=== PATIENT | male | born 1985 | race Caucasian/White ===

== ENCOUNTER 2021-03-08 08:37 | Emergency (ER) | payer OTHER, BC, SELFPAY ==
[2021-03-08 08:45] VITALS: BP 139/89; PULSE 83; RESP 16; TEMP 36.9; O2SAT 100; BMI 28.2
--- NOTE | 2021-03-08 08:49 | XRR_ITS ---
PROCEDURE INFORMATION: Exam: XR Chest Exam date and time: 03/08/2021 8:51 AM Age: 35 years old Clinical indication: Angina and shortness of breath; Patient HX: SOB, heaviness in chest, headache, body aches, eyes itchy and dry; Additional info: Flu like sympoms TECHNIQUE: Imaging protocol: XR of the chest. Views: 1 view. COMPARISON: No relevant prior studies available. FINDINGS: Lungs: Visualized portions of the lungs are clear. Pleural spaces: Unremarkable. No pleural effusion. No pneumothorax. Heart/Mediastinum: Heart is within normal limits of size. Bones/joints: Unremarkable. XR/XR chest 1V portable [id number] IMPRESSION: No acute infiltrate.
--- NOTE | 2021-03-08 09:17 | ED_ITS ---
HPI - General Adult General: Chief complaint: Headache Stated complaint: migraine/ nausea/ body aches Time Seen by Provider: 03/08/21 08:41 History of Present Illness: HPI narrative: 35-year-old male presents emergency room with multiple mild complaints. Centers around that he was potentially exposed to Covid. He does not have any direct positive Covid contact. His son is at a daycare his son may have been exposed to Covid. His son does not have symptoms however he has been having nausea headache myalgias slight cough generalized abdominal discomfort is not had any diarrhea cough has been nonproductive he has had a little low-grade subjective fever no dysuria urgency or frequency. Onset (ago): day(s) Severity: mild Quality: aching Pain Consistency: constant Relieving factors: none Exacerbating factors: none Associated symptoms: Deny chest pain, confusion, cough, diaphoresis, decreased appetite, dyspnea, fevers/chills, headache(s), malaise, nausea, rash, palpitations, seizures, short of breath, syncope, vomiting or weakness Treatments prior to arrival: none Review of Systems Const: Denies: malaise or diaphoresis ENMT: Denies: throat pain, ear or mastoid pain, nasal discharge or nasal congestion Card: Denies: chest pain, palpitations or syncope Resp: Denies: dyspnea GI: Denies: nausea or vomiting : Denies: flank pain, dysuria, urinary frequency or urinary urgency Skin/Breast: Denies: rash Neuro: Denies: headache(s) or confusion Physical Exam Const: COMMON NORMALS: no acute distress GENERAL APPEARANCE: cooperative and comfortable ORIENTATION/CONSCIOUSNESS: Yes awake, Yes oriented to person, Yes oriented to place and Yes oriented to time HENMT: COMMON NORMALS: normocephalic, atraumatic and hearing grossly normal bilaterally HEAD & SCALP: normocephalic and atraumatic Neck/C-Spine: COMMON NORMALS: no JVD Resp: COMMON NORMALS: normal respiratory effort, No retractions, No use of accessory muscles and clear to auscultation bilaterally AUSCULTATION: clear to auscultation bilaterally Cardio: COMMON NORMALS: no JVD, regular rate, regular rhythm and No murmurs present (Cardio) RATE: regular rate RHYTHM: regular rhythm GI: COMMON NORMALS: Soft to palpation and No hepatosplenomegaly present AUSCULTATION: Yes normoactive bowel sounds PALPATION: Yes Soft to palpation, No Tenderness to palpation present (GI), No Guarding due to palpation present (GI) and Yes No hepatosplenomegaly present Extremity: COMMON NORMALS: normal to inspection, capillary refill normal, no clubbing, cyanosis or edema, no calf tenderness and no pedal edema Neuro: SENSORIUM/ORIENTATION: Yes oriented to person, Yes oriented to place and Yes oriented to time Skin: COMMON NORMALS: no rashes or lesions noted GENERAL SKIN EXAM: no rashes or lesions noted Course Vital Signs: Vital signs: Vital Signs Temperature 98.4 F 03/08/21 08:45 Pulse Rate 76 03/08/21 10:42 Respiratory Rate 18 03/08/21 10:42 Blood Pressure 136/82 03/08/21 10:42 Pulse Oximetry 99 03/08/21 10:42 MDM - General Adult MDM Narrative: Medical decision making narrative: Labs unremarkable. Will treat symptomatically Tylenol and ibuprofen push fluids advance diet as tolerated follow-up with primary care if not improving we did do a send out PCR recommend here maintain self quarantine until results are available Lab Data: Labs: Lab Results 03/08/21 03/08/21 03/08/21 Range/Units 10:08 10:08 10:08 WBC 6.7 (4.0-10.0) 10^3/ uL RBC 5.43 H (4.1-5.3) 10^6/u L Hgb 16.0 (11.7-16.6) g/dL Hct 47.3 (42.0-52.0) % MCV 87.1 (80-94) fL MCH 29.5 (28.0-34.0) pg MCHC 33.8 (30.0-36.0) g/dL RDW 11.9 L (12.1-15.1) % Plt Count 231 (130-400) 10^3/c mm MPV 9.9 (7.4-10.4) fL Neut % (Auto) 79.1 % Lymph % (Auto) 15.5 % [place] % (Auto) 3.9 % Eos % (Auto) 0.9 % Baso % (Auto) 0.3 % Neut # (Auto) 5.32 (1.8-7.7) 10^3/u L Lymph # (Auto) 1.0 (0.8-4.8) 10^3/u L [place] # (Auto) 0.3 (0.2-0.9) 10^3/u L Eos # (Auto) 0.1 (0.0-0.8) 10^3/u L Baso # (Auto) 0.0 (0.0-0.1) 10^3/u L Nucleated RBC % (a uto) 0 % Nucleated RBCs # 0.0 /100WBC Sodium 138 (136-145) mmol/L Potassium 4.5 (3.5-5.1) mmol/L Chloride 103 (98-107) mmol/L Carbon Dioxide 25 (22-29) mmol/L Anion Gap 14.5 (5-19) BUN 11 (6-20) mg/dL Creatinine 0.7 (0.7-1.2) mg/dL GFR Calculation 129.9 (90-130) mL/min Glucose 87 (65-115) mg/dL Calculated Osmolal ity 285 (285-295) mOsm/k g Calcium 8.6 (8.5-10.5) mg/dL Total Bilirubin 0.7 (0.15-1.2) mg/dL AST 28 (0-40) U/L ALT 31 (0-41) U/L Alkaline Phosphata se 78 (40-130) IU/L Total Protein 6.7 (6.6-8.7) g/dL Albumin 4.8 (3.5-5.2) g/dL Globulin 1.9 (1.3-4.6) g/dL Urine Color (Yellow) Urine Appearance (CLEAR) Urine pH (5-7) Ur Specific Gravit y (1.005-1.030) Urine Protein (Negative) Urine Glucose (UA) (Normal) Urine Ketones (Negative) Urine Blood (Negative) Urine Nitrate (Negative) Urine Bilirubin (Negative) Urine Urobilinogen (Negative) mg/dL Ur Leukocyte Leida ase (Negative) SARS-CoV-2 Ag (Rap id) Negative (Negative) 03/08/21 Range/Units 10:25 WBC (4.0-10.0) 10^3/ uL RBC (4.1-5.3) 10^6/u L Hgb (11.7-16.6) g/dL Hct (42.0-52.0) % MCV (80-94) fL MCH (28.0-34.0) pg MCHC (30.0-36.0) g/dL RDW (12.1-15.1) % Plt Count (130-400) 10^3/c mm MPV (7.4-10.4) fL Neut % (Auto) % Lymph % (Auto) % [place] % (Auto) % Eos % (Auto) % Baso % (Auto) % Neut # (Auto) (1.8-7.7) 10^3/u L Lymph # (Auto) (0.8-4.8) 10^3/u L [place] # (Auto) (0.2-0.9) 10^3/u L Eos # (Auto) (0.0-0.8) 10^3/u L Baso # (Auto) (0.0-0.1) 10^3/u L Nucleated RBC % (a uto) % Nucleated RBCs # /100WBC Sodium (136-145) mmol/L Potassium (3.5-5.1) mmol/L Chloride (98-107) mmol/L Carbon Dioxide (22-29) mmol/L Anion Gap (5-19) BUN (6-20) mg/dL Creatinine (0.7-1.2) mg/dL GFR Calculation (90-130) mL/min Glucose (65-115) mg/dL Calculated Osmolal ity (285-295) mOsm/k g Calcium (8.5-10.5) mg/dL Total Bilirubin (0.15-1.2) mg/dL AST (0-40) U/L ALT (0-41) U/L Alkaline Phosphata se (40-130) IU/L Total Protein (6.6-8.7) g/dL Albumin (3.5-5.2) g/dL Globulin (1.3-4.6) g/dL Urine Color Yellow (Yellow) Urine Appearance Clear (CLEAR) Urine pH 5 (5-7) Ur Specific Gravit y 1.015 (1.005-1.030) Urine Protein Neg (Negative) Urine Glucose (UA) Norm (Normal) Urine Ketones Negative (Negative) Urine Blood Neg (Negative) Urine Nitrate Negative (Negative) Urine Bilirubin Neg (Negative) Urine Urobilinogen Norm (Negative) mg/dL Ur Leukocyte Leida ase Negative (Negative) SARS-CoV-2 Ag (Rap id) (Negative) Discharge Plan Discharge Patient Disposition: Home Clinical Impression: Viral URI Condition: Stable Discharge Orders: Discharge ED (Routine); Ordered 03/08/21 Ordered By: Ranjit Peres Referrals: Jarret Alarcon, [Primary Care Provider] - Discharge Diet: Usual diet Discharge Activity: Increase activity as tolerated Patient Instructions: Opioid Safety Activity Restrictions/Additional Instructions: REcommend you remain in self qurantine until final results available. Coding Level of Care Code ED Electric[employer] for Karen Fwd Exam Comprehensive
[2021-03-08] MEDS: sodium chloride 0.9% 1,000 ML 999 ML IV (09:33)
[2021-03-08] MEDS: ketorolac 30 mg/mL INJ IVP (09:35)
[2021-03-08] MEDS: promethazine 25 mg/mL SDV 1 mL IM (09:36)
[2021-03-08] MEDS: diphenhydrAMINE 50 mg/mL SDV 1mL 25 MG IVP (09:36)
[2021-03-08 10:18] LABS: Basophils % 0.3 %; Eosinophils # 0.1 10^3/uL (0.0-0.8); Eosinophils % 0.9 %; Hematocrit 47.3 % (42.0-52.0); Lymphocytes % 15.5 %; Mean Corpuscular HGB Conc 33.8 g/dL (30.0-36.0); Mean Corpuscular Hemoglobin 29.5 pg (28.0-34.0); Mean Corpuscular Volume 87.1 fL (80-94); Mean Platelet Volume 9.9 fL (7.4-10.4); Monocytes # 0.3 10^3/uL (0.2-0.9); Monocytes % 3.9 %; Neutrophils # 5.32 10^3/uL (1.8-7.7); Neutrophils % 79.1 %; Nucleated Red Blood Cells % 0 %; Platelet Count 231 10^3/cmm (130-400); Red Blood Count 5.43 10^6/uL (4.1-5.3); Red Cell Distribution Width 11.9 % (12.1-15.1); White Blood Count 6.7 10^3/uL (4.0-10.0)
[2021-03-08 10:34] LABS: Alanine Aminotransferase 31 U/L (0-41); Albumin Level 4.8 g/dL (3.5-5.2); Alkaline Phosphatase 78 IU/L (40-130); Aspartate Amino Transferase 28 U/L (0-40); Blood Urea Nitrogen 11 mg/dL (6-20); Calcium 8.6 mg/dL (8.5-10.5); Carbon Dioxide 25 mmol/L (22-29); Chloride 103 mmol/L (98-107); Creatinine Clr Calc Pharmacy 148.6782; Globulin 1.9 g/dL (1.3-4.6); Glomerular Filtration Rate 129.9 mL/min (90-130); Glucose 87 mg/dL (65-115); Osmolality Calculated 285 mOsm/kg (285-295); Sodium 138 mmol/L (136-145); Total Bilirubin 0.7 mg/dL (0.15-1.2); Total Protein 6.7 g/dL (6.6-8.7)
[2021-03-08 10:38] LABS: Add Urine Microscopic? NO; Charge for UA Resulting for Rev
[2021-03-08 10:42] VITALS: BP 136/82; PULSE 76; RESP 18; O2SAT 99
[2021-03-08 10:46] LABS: Bilirubin Urine Neg (Negative); Blood Urine Neg (Negative); Glucose Urine UA Norm (Normal); Ketones Urine Negative (Negative); Leukocyte Esterase Urine Negative (Negative); Nitrate Urine Negative (Negative); Protein Urine Neg (Negative); Specific Gravity, Urine 1.015 (1.005-1.030); Urine Appearance Clear (CLEAR); Urine Color Yellow (Yellow); Urobilinogen Urine Norm (Negative); pH Urine 5 (5-7)
[2021-03-08 11:01] LABS: Anion Gap 14.5 (5-19); Potassium 4.5 mmol/L (3.5-5.1)
[2021-03-08 11:15] LABS: SARS Covid-2 Antigen Negative (Negative)
[2021-03-08 13:06] VITALS: BP 137/80; PULSE 83; RESP 18; O2SAT 99
[2021-03-09 13:14] LABS: Coronavirus Test Green County Not Detected
--- NOTE | 2021-03-10 09:35 | PC.NURSE ---
pt notified of negative covid
== END 2021-03-08 13:07 | disposition home or self-care (01) ==
PROVIDERS: Emergency Provider Family Medicine; PCP Emergency Medicine Emergency Medical Services
DX: J06.9 Acute upper respiratory infection, unspecified (principal)
CPT/HCPCS: 71045; 80053; 81003; 85025; 87426; 87635; 96361; 96372; 96374; 96375; 99284; J1200; J1885; J2550; J7030